=== PATIENT | male | born 2000 | race Two or more races ===

== ENCOUNTER → 2023-04-23 | Outpatient (CLI) | payer BC ==
[2023-04-23 09:19] LABS: Chloride 107 mmol/L (98-107); Sodium 140 mmol/L (136-145)
[2023-04-23 09:20] LABS: Anion Gap 7.2 (5-15); Calcium 9.5 mg/dL (8.5-10.1); Carbon Dioxide 25.8 mmol/L (20-30)
[2023-04-23 09:25] LABS: BUN/Creatinine Ratio 10.1 (10.0-20.0); Blood Urea Nitrogen 9 mg/dL (9-23); Glucose 97 mg/dL (74-106); Triglycerides 129 mg/dL (< 150)
[2023-04-23 09:26] LABS: LDL Cholesterol 119 mg/dL (< 100)
[2023-04-23 09:27] LABS: Cholesterol 170 mg/dL (< 200); HDL Cholesterol 44 mg/dL (40-59)
== END | disposition home or self-care (01) ==
LOC: LAB 08:13
PROVIDERS: ATTEND Family Medicine
DX: E66.09 Other obesity due to excess calories (principal); E88.81 Metabolic syndrome and other insulin resistance; E55.9 Vitamin D deficiency, unspecified; E78.5 Hyperlipidemia, unspecified; Z68.35 Body mass index [BMI] 35.0-35.9, adult
CPT/HCPCS: 36415; 80048; 80061; 82306; 83036; 84443

== ENCOUNTER 2024-08-17 20:42 | Emergency (ER) | payer BC, OTHER ==
[~2024-08-17] VITALS: Ht 190.5 cm; Wt 129.9 kg
[2024-08-17 21:00] VITALS: BP 149/85; PULSE 87; RESP 16; TEMP 97.4; O2SAT 97
--- NOTE | 2024-08-17 22:13 | DVH ---
EXAMINATIONS: 3 views of the right foot 3 views of the right ankle CLINICAL HISTORY: Right foot and ankle pain COMPARISON: None Findings and impression: Obliquely oriented and mildly displaced fracture involving the proximal metadiaphyseal region of the 5th metatarsal. Ankle mortise appears intact.
[2024-08-18] MEDS ORDERED: IBUP-1456 PO (00:27)
--- NOTE | 2024-08-18 00:27 | ED.PDOC ---
Musculoskeletal HPI Comments 23-YEAR-OLD MALE PRESENTS TO ER WITH COMPLAINTS OF RIGHT FOOT PAIN X ONE DAY. PATIENT REPORTS THAT HE STARTED EXPERIENCING PAIN TO RIGHT LATERAL FOOT AT 7:30 P.M. PRIOR TO ARRIVAL TO ER AFTER HE PIVOTED WITH MOST OF HIS WEIGHT ON HIS RIGHT FOOT AT WORK. DENIES ANY TRAUMA/FALLS. HE RATES HIS CURRENT PAIN A 10/10 TO RIGHT LATERAL FOOT WITH RADIATION TOWARDS RIGHT ANKLE. DENIES USE OF MEDICATIONS FOR CURRENT SYMPTOMS. STATES HE HAS BEEN UNABLE TO BEAR WEIGHT ON RIGHT LEG DUE TO RIGHT LATERAL FOOT PAIN. DENIES NUMBNESS/TINGLING OR ANY FURTHER SYMPTOMS/COMPLAINTS Chief Complaint: Lower Extremity Time Seen by MD: 21:46 Primary Care Provider: ELIN Parrish Notes: Nurses Notes, Medications, Allergies Allergies: Coded Allergies: NO KNOWN ALLERGIES (Unverified , 09/09/14) Home Meds Active Scripts Ibuprofen (Ibuprofen) 800 Mg Tab, 1 TAB PO TID PRN, #30 TAB 0 Refills Prov:DANNY SHEA 08/18/24 Information Source: Patient Mode of Arrival: Ambulatory Past Medical History PAST MEDICAL HISTORY: Seizures, Thyroid Surgical History: Denies all surgeries Family History Family History: Unknown Social History Smoker: Non-Smoker Alcohol: Denies ETOH Use Drugs: Denies Drug Use Lives In: Home Constitutional: denies: chills, diaphoresis, fatigue, fever, malaise, sweats, weakness, others EENTM: denies: blurred vision, double vision, ear bleeding, ear discharge, ear drainage, ear pain, ear ringing, eye pain, eye redness, hearing loss, mouth pain, mouth swelling, nasal discharge, nose bleeding, nose congestion, nose pain, photophobia, tearing, throat pain, throat swelling, voice changes, others Respiratory: denies: cough, hemoptysis, orthopnea, SOB at rest, shortness of breath, SOB with excertion, stridor, wheezing, others Cardiovascular: denies: chest pain, dizzy spells, diaphoresis, Dyspnea on exertion, edema, irregular heart beat, left arm pain, lightheadedness, palpitations, PND, syncope, others Gastrointestinal: denies: abdomen distended, abdominal pain, blood streaked bowels, constipated, diarrhea, dysphagia, difficulty swallowing, hematemesis, melena, nausea, poor appetite, poor fluid intake, rectal bleeding, rectal pain, vomiting, others Genitourinary: denies: burning, dysuria, flank pain, frequency, hematuria, incontinence, penile discharge, penile sore, pain, testicle pain, testicle swelling, urgency, others Neurological: denies: dizziness, fainting, headache, left sided numbness, left sided weakness, numbness, paresthesia, pre-existing deficit, right sided numbness, right sided weakness, seizure, speech problems, tingling, tremors, weakness, others Musculoskeletal: reports: others ( STATED IN HPI) Integumetry: denies: bruises, change in color, change in hair/nails, dryness, laceration, lesions, lumps, rash, wounds, others Allergic/Immunocompromised: denies: Difficulty Healing, Frequent Infections, Hives, Itching, others Hematologic/Lymphatic: denies: anemia, blood clots, easy bleeding, easy bruising, swollen glands, others Endocrine: denies: excessive hunger, excessive sweating, excessive thirst, excessive urination, flushing, intolerance to cold, intolerance to heat, unexplained weight gain, unexplained weight loss, others Psychiatric: denies: anxiety, bipolar disorder, depression, hopeless, panic disorder, schizophrenia, sleepless, suicidal, others Physical Exam General Appearance: No Apparent Distress HEENT: PERRL/EOMI Neck: Full Range of Motion, Non-Tender, Normal Respiratory: Chest Non-Tender, Lungs Clear, No Accessory Muscle Use, No Respiratory Distress, Normal Breath Sounds Cardiovascular: No Murmur, No Gallop, Regular Rate/Rhythm Breast Exam: Deferred Gastrointestinal: NOT DONE Genitalia: Deferred Pelvic: Deferred Rectal: Deferred Extremities: Normal capillary refill Musculoskeletal : Extremity Location: Foot (TTP/MILD SWELLING NOTED TO PROXIMAL RIGHT 5TH METATARSAL. NO TTP TO RIGHT ANKLE NOTED. NO FURTHER SKIN CHANGES NOTED. PULSES INTACT. PATIENT UNABLE TO BEAR WEIGHT ON RIGHT LEG DUE TO PAIN LOCALIZED TO PROXIMAL RIGHT 5TH METATARSAL) Neurologic: Alert, No Motor Deficits, Normal Affect, Normal Mood, No Sensory Deficits Cerebellar Function: Normal Reflexes: Normal Skin: Dry, Normal Color, Warm Peripheral Pulses: 2+ dorsalis pedis (R), 2+ dorsalis pedis (L) Lymphatic: No Adenopathy Was a procedure done? Was a procedure done?: No Sedation Sedation?: No Differential Diagnosis EXT Differential Diagnosis: Dislocation, Laceration, Neurovascular injury X-Ray, Labs, Meds, VS Vital Signs Date Time Temp Pulse Resp B/P (MAP) Pulse Ox O2 Delivery O2 Flow Rate FiO2 08/17/24 21:00 97.4 87 16 149/85 (106) 97 PATIENT: DANIA LOPEZCCT: [id number]: [id number] : 2000 LOC: ER ROOM / BED: / AGE / SEX: 23 / M ADM STATUS: REG ER SERVICE 45 ORDERING PHYSICIAN: DANNY SHEA PROCEDURE(s): RFOOT - R FOOT 3 VIEW XRAY REASON: RIGHT FOOT PAIN ORDER NUMBER(s): [id number], ACCESSION NUMBER(s): [id number] EXAMINATIONS: 3 views of the right foot 3 views of the right ankle CLINICAL HISTORY: Right foot and ankle pain COMPARISON: None Findings and impression: Obliquely oriented and mildly displaced fracture involving the proximal metadiaphyseal region of the 5th metatarsal. Ankle mortise appears intact. ATED BY: GANGA KATE MD DICTATED DATE/TIME: 08/17/242209 SIGNED BY: GANGA KATE MD SIGNED DATE/TIME: 08/17/242209 CC: PATIENT: JEANNIE LOPEZ ACCT: [id number] UNIT: [id number] : 2000 LOC: ER ROOM / BED: / AGE / SEX: 23 / M ADM STATUS: REG ER SERVICE 45 ORDERING PHYSICIAN: DANNY SHEA PROCEDURE(s): RANKL - R ANKLE 3 VIEW REASON: RIGHT ANKLE PAIN ORDER NUMBER(s): [id number], ACCESSION NUMBER(s): [id number] EXAMINATIONS: 3 views of the right foot 3 views of the right ankle CLINICAL HISTORY: Right foot and ankle pain COMPARISON: None Findings and impression: Obliquely oriented and mildly displaced fracture involving the proximal metadiaphyseal region of the 5th metatarsal. Ankle mortise appears intact. ATED BY: GANGA KATE MD DICTATED DATE/TIME: 08/17/242209 SIGNED BY: GANGA KATE MD SIGNED DATE/TIME: 08/17/242209 CC: RIGHT FOOT AND RIGHT ANKLE X-RAY REVIEWED RIGHT POSTERIOR ANKLE SPLINT APPLIED PATIENT NEUROVASCULARLY INTACT TORADOL 60 MG IM ORDERED CRUTCHES ORDERED, PATIENT EDUCATED ON PROPER USE. WAS ADVISED ON NONWEIGHTBEARING RIGHT LEG ADVISED ON REST/ NO STRENUOUS ACTIVITY, ELEVATION AND ALTERNATE ICE ON/OFF NEEDED FOR PAIN/SWELLING PATIENT PROVIDED COPIES OF X-RAY IMAGING REPORTS [facility] FILLED OUT ADVISED TO FOLLOW UP WITH PCP, [facility] COMP PCP AND ORTHOPEDICS IN 1-2 DAYS PATIENT VERBALIZED UNDERSTANDING AND AGREEABLE WITH CURRENT PLAN OF CARE ADVISED TO RETURN TO ER IMMEDIATELY IF SYMPTOMS WORSEN Images Reviewed?: Images reviewed and evaluated by me Time of 1ST Reevaluation: 00:02 Reevaluation 1ST: Improved Time of 2ND Reevaluation: 00:20 Reevaluation 2ND: Improved Patient Education/Counseling: Diagnosis, Treatment, Prognosis, Need For Follow Up Family Education/Counseling: No Family Present Departure 1 Departure Time of Disposition: 00:22 Impression: Primary Impression: Metatarsal fracture Qualified Codes: S92.354A - Nondisplaced fracture of fifth metatarsal bone, right foot, initial encounter for closed fracture Disposition: 01 HOME / SELF CARE / HOMELESS Condition: Stable e-Prescriptions Ibuprofen (Ibuprofen) 800 Mg Tab 1 TAB PO TID PRN, #30 TAB 0 Refills Prov: DANNY SHEA 08/18/24 Discharged With: Friend Critical Care Note Critical Care Time?: No Stability Stability form required: No Heart Score Heart Score: Heart Score Response (Comments) Value History N/A 0 EKG N/A 0 Age N/A 0 Risk Factors N/A 0 Troponin N/A 0 Total 0 DANNY SHEA Aug 18, 2024 00:27
[2024-08-18] MEDS: KETOROLAC TROMETH 60MG/2ML VIAL IM ONE (01:29)
== END 2024-08-18 01:27 | disposition home or self-care (01) ==
LOC: ER 20:42
DX: S92.354A Nondisplaced fracture of fifth metatarsal bone, right foot, initial encounter for closed fracture (principal); S82.891A Other fracture of right lower leg, initial encounter for closed fracture; X58.XXXA Exposure to other specified factors, initial encounter; Y93.89 Activity, other specified; Y92.69 Other specified industrial and construction area as the place of occurrence of the external cause; Y99.8 Other external cause status
CPT/HCPCS: 29515; 73610; 73630; 96372; 99284; J1885

== ENCOUNTER → 2024-12-07 | Outpatient (CLI) | payer BC ==
[~2024-12-07] MED LIST: IBUP-1456 PO
[2024-12-07 12:30] LABS: Urine Bacteria None Seen /hpf (None Seen)
[2024-12-07 12:46] LABS: Basophils # (auto) 0.1 10 ^3/uL (0-0.2); Basophils % (auto) 1.5 % (0.0-2.0); Eosinophils # (auto) 0.2 10 ^3/uL (0-0.8); Eosinophils % (auto) 2.4 % (0.0-7.0); Hematocrit 44.8 % (41.0-53.0); Hemoglobin 15.4 g/dL (13.5-17.5); Lymphocytes # (auto) 2.5 10 ^3/uL (0.4-5.4); Lymphocytes % (auto) 34.9 % (10.0-50.0); Mean Corpuscular Hemoglobin 27.4 pg (28.0-32.0); Mean Corpuscular Hgb Conc. 34.2 g/dL (32.0-36.0); Mean Corpuscular Volume 80.1 fL (80.0-100.0); Monocytes # (auto) 0.5 10 ^3/uL (0-1.3); Monocytes % (auto) 6.4 % (0.0-12.0); Neutrophils % (auto) 54.8 % (37.0-80.0); Nucleated Red Blood Cells % 0.1 %; Platelet Count (auto) 298 10^3/uL (140-450); Red Blood Cells 5.59 10^6/uL (4.5-5.90); Red Cell Distribution Width 13.8 % (11.8-14.3); White Blood Cell 7.2 10^3/uL (4.4-10.8)
[2024-12-07 13:03] LABS: Urine Blood Negative /uL (Negative); Urine Clarity Clear (Clear); Urine Color Light-Yellow (Yellow); Urine Protein, UAD Negative (Negative); Urine Specific Gravity 1.018 (1.001-1.035); Urine Squamous Epithelial Cell FEW /hpf (<5); Urine Urobilinogen Normal (Negative); Urine WBC 1 /HPF (0-3); Urine pH 5.5 (5.0-9.0)
[2024-12-07 13:12] LABS: Anion Gap 10 (5-15); BUN/Creatinine Ratio 12.5 (10.0-20.0); Bilirubin, Total 0.4 mg/dL (0.2-1.0); Blood Urea Nitrogen 11 mg/dL (9-23); Calcium 10.3 mg/dL (8.7-10.4); Carbon Dioxide 23 mmol/L (20-31); Chloride 107 mmol/L (98-107); Cholesterol 193 mg/dL (< 200); Glucose 98 mg/dL (74-106); HDL Cholesterol 43 mg/dL (40-59); Potassium 4.2 mmol/L (3.5-5.1); Sodium 140 mmol/L (136-145); Total Protein 8.2 g/dL (5.7-8.2); Triglycerides 134 mg/dL (< 150)
[2024-12-07 13:13] LABS: Alanine Aminotransferase 42 U/L (7-40); Albumin 4.9 g/dL (3.2-4.8); Alkaline Phosphatase 118 U/L (46-116); Aspartate Aminotransferase 11 U/L (13-40); LDL Cholesterol 144 mg/dL (< 100)
[2024-12-07 13:24] LABS: Uric Acid 8.2 mg/dL (3.7-9.2)
[2024-12-09 00:07] LABS: Chlamydia Trachomatis, NAA Negative (Negative); Neisseria gonorrhoeae, NAA Negative (Negative)
== END | disposition home or self-care (01) ==
LOC: LAB 12:10
PROVIDERS: ATTEND Family Medicine
DX: E06.3 Autoimmune thyroiditis (principal); E55.9 Vitamin D deficiency, unspecified; E78.5 Hyperlipidemia, unspecified; E88.819 Insulin resistance, unspecified; G40.909 Epilepsy, unspecified, not intractable, without status epilepticus; F41.0 Panic disorder [episodic paroxysmal anxiety]; F10.20 Alcohol dependence, uncomplicated; Y90.9 Presence of alcohol in blood, level not specified
CPT/HCPCS: 36415; 80053; 80061; 81001; 82306; 83036; 84443; 84550; 85025